=== PATIENT | male | born 1975 | race Caucasian/White ===

== ENCOUNTER 2016-10-20 14:28 | Emergency (ER) | payer OTHER ==
--- NOTE | ~2016-10-20 | CT2 ---
[facility] A Service [facility] RADIOLOGY TEXT RESULTS PATIENT: BRYANT HERRERA LOCATION: [facility] : [birth year] UNIT #: [id number] AGE: [address]: Bryant Gómez MD SEX: M ORDER DR: [id number] [facility] [address]. [place], [place] [address] [id number] E MR#: [id number] Acc #: [id number] NAME: BRYANT HERRERA. : 1975 SEX: M STUDY DATE/TIME: 10/20/2016 15:49 UNIT: [facility] ROOM: STUDY DESCRIPTION: CT Abd and Pelv W Cont Attending Physician: Micah Gómez M.D. Ordering Physician: Rashaun Javier M.D. Primary Care Physician: Mahesh Bazan M.D. MEDICAL IMAGING REPORT This report is preliminary unless electronic signature is present EXAM CT of the abdomen and pelvis with IV contrast media 10/20/2016 HISTORY Right-sided abdominal pain for 2 days. TECHNIQUE Axial imaging of the abdomen and pelvis was obtained with IV contrast media. This CT exam was performed with one or more of the following radiation dose reduction techniques: automatic exposure control, adjustment of mA and/or kV according to patient size, and iterative reconstruction. COMPARISON STUDIES The patient has not had any prior imaging of the abdomen and pelvis for comparison. FINDINGS Scans through the lung bases are normal. Liver, spleen, gallbladder, adrenal glands, and pancreas have a normal appearance. Both the right and left kidney are normal. No dilated or thickened loops of bowel are identified in the upper abdomen. The appendix in this patient is normal. Scans through the pelvis show extensive sigmoid diverticulosis but there is no compelling evidence of diverticulitis. There is some redundancy of the sigmoid. Bladder is unremarkable. Prostate and seminal vesicles appear normal. CONCLUSION Sigmoid diverticulosis, otherwise negative. Dictated by... Ata Fregoso M.D. [facility] A Service of [facility] RADIOLOGY TEXT RESULTS PATIENT: BRYANT HERRERA LOCATION: [facility] : 79 UNIT #: [id number] AGE: [address]: Bryant Gómez MD SEX: M ORDER DR: THIS IS AN ELECTRONICALLY VERIFIED REPORT Ata Fregoso M.D. at 10/24/2016 2:45 PM AGUILA/nitza TD: 10/20/2016 17:45 JOB #: [id number] MEDICAL IMAGING REPORT Page 1 of 1 COPY
[2016-10-20 14:28] LABS: URINE SOURCE CLEAN CATCH
[~2016-10-20 14:28] MED LIST: ALBUTEROL17 GM INH; AMBIEN10 MG PO; AUGMENTIN875 MG PO; HEARTBURN RELIE75 M1 PO; LORTAB 7.51 TAB DOB; VOLTAREN75 MG PO
[2016-10-20 14:37] LABS: BASOPHIL# 0.1 X10e3 (0-0.3); BASOPHIL% 0.9 % (0-2.5); EOSINOPHIL# 0.2 X10e3 (0-0.7); EOSINOPHIL% 2.4 % (0.0-7.0); HEMATOCRIT 46.1 % (38.0-50.0); HEMOGLOBIN 15.5 gm/dL (13.0-16.0); LYMPHOCYTE# 1.7 X10e3 (1.0-3.5); LYMPHOCYTE% 22.4 % (17.0-45.0); MEAN CELL VOLUME 88.4 FL (83-96); MEAN CORPUSCULAR HEMOGLOBIN 29.7 PG (28-34); MEAN CORPUSCULAR HGB CONC 33.6 g/dL (30-36); MEAN PLATELET VOLUME 8.7 FL (6.5-11.5); MONOCYTE# 0.7 X10e3 (0-1.0); MONOCYTE% 9.1 % (3.0-12.0); NEUTROPHIL# 4.9 X10e3 (1.5-7.1); NEUTROPHIL% 65.2 % (40-75); PLATELET COUNT 245 X10e3 (140-420); RED BLOOD COUNT 5.21 X10e (3.90-5.60); RED CELL DISTRIBUTION WIDTH 14.9 % (11.0-15.5); WHITE BLOOD COUNT 7.5 X10e3 (4.0-10.5)
[2016-10-20 14:40] LABS: URINE APPEARANCE CLEAR; URINE BILIRUBIN NEG (NEG); URINE BLOOD NEG (NEG); URINE COLOR YELLOW; URINE GLUCOSE NEG (NEG); URINE KETONE NEG (NEG); URINE LEUKOCYTE ESTERASE NEG (NEG); URINE NITRATE NEG (NEG); URINE PROTEIN NEG (NEG); URINE SPECIFIC GRAVITY 1.024 (1.003-1.035); URINE UROBILINOGEN 0.2 MG/DL (NEG)
[2016-10-20 14:41] LABS: DIFF IND NO
[2016-10-20 15:00] LABS: ALBUMIN SERUM 4.4 g/dL (3.5-5.0); BILIRUBIN, DIRECT 0.1 mg/dL (0.0-0.2); BILIRUBIN,INDIRECT 0.7 mg/dL (0.0-0.9); BILIRUBIN,TOTAL 0.8 mg/dL (0.2-2.0); BUN/CREATININE RATIO 31.66; CREATININE SERUM 0.6 mg/dL (0.6-1.4); GLOM FILT RATE Estimated 126.7 mL/min (>60); POTASSIUM 4.4 mmol/L (3.5-5.1); PROTEIN TOTAL SERUM 7.7 g/dL (6.0-8.3)
[2016-10-20 15:04] LABS: CULTURE INDICATED? NO
[2016-11-16] MEDS ORDERED: SUBOXONE 8 MG-1 EAC1 SL (12:20)
== END 2016-10-20 17:40 | disposition home or self-care (01) ==
LOC: CED 14:28
PROVIDERS: Emergency Medicine
DX: K57.32 Diverticulitis of large intestine without perforation or abscess without bleeding (principal); F17.210 Nicotine dependence, cigarettes, uncomplicated
CPT/HCPCS: 36415; 74177; 80048; 80076; 81003; 82150; 83690; 85025; 99284; Q9967

== ENCOUNTER 2016-11-16 13:01 | Emergency (ER) | payer OTHER ==
--- NOTE | ~2016-11-16 | EKG ---
PATIENT: BRYANT HERRERA UNIT #: [id number] Ventricular Rate: 57 BPM Atrial Rate: 57 BPM P-R Interval: 154 ms QRS Duration: 108 ms Q-T Interval: 422 ms QTC Calculation(Bezet): 410 ms P [place]: 40 degrees Calculated R [place]: -9 degrees Calculated T [place]: 38 degrees Diagnosis Line: Sinus bradycardia Diagnosis Line: Incomplete right bundle branch block Diagnosis Line: Otherwise normal ECG Diagnosis Line: No previous ECGs available Diagnosis Line: Confirmed by SIM SORIANO MD ([id number]) on 11/24/2016 Diagnosis Line: 11:51:58 AM INTERPRETING MD: CHRISTIE AGUIRRE
--- NOTE | ~2016-11-16 | CR63 ---
[facility] A Service of [facility] & [facility] RADIOLOGY TEXT RESULTS PATIENT: BRYANT HERRERA LOCATION: [facility] : 79 UNIT #: [id number] AGE: [address]: Rebeka Avitia APRN SEX: M ORDER DR: [id number] [place] [address] [id number] E MR#: [id number] Acc #: [id number] NAME: BRYANT HERRERA : 1975 SEX: M STUDY DATE/TIME: 11/16/2016 13:26 UNIT: [facility] ROOM: STUDY DESCRIPTION: CR Chest 2 View Attending Physician: Rebeka Avitia A.P.R.N. Ordering Physician: Rebeka Avitia A.P.R.N. Primary Care Physician: Mahesh Bazan M.D. MEDICAL IMAGING REPORT This report is preliminary unless electronic signature is present. EXAM Chest x-ray, 11/16. INDICATION Sore throat, cough, diaphoresis and dizziness for the last two days. History of smoking. FINDINGS 2 views of the chest are compared with 11/25/2013. Lungs appear emphysematous but clear. Cardiac and mediastinal contours are normal. There is no pneumothorax. IMPRESSION Emphysema. No active disease. Dictated by... Rashaun Mckeon Jr., M.D. THIS IS AN ELECTRONICALLY VERIFIED REPORT Rashaun Mckeon Jr., M.D. at 11/16/2016 4:45 PM JOHN/kostas TD: 11/16/2016 14:19 JOB #: [id number] MEDICAL IMAGING REPORT Page 1 of 1
[2016-11-16 12:49] LABS: INFLUENZA A NEG (NEG); INFLUENZA B NEG (NEG)
[~2016-11-16 13:01] MED LIST changes: +SUBOXONE 8 MG-1 EAC1 SL
[2016-11-16 13:25] LABS: POC - CKMB 2.3 ng/mL (0.0-7.9)
[2016-11-16 13:25] LABS: BASOPHIL% 0.6 % (0-2.5); EOSINOPHIL# 0.1 X10e3 (0-0.7); EOSINOPHIL% 2.3 % (0.0-7.0); HEMATOCRIT 43.9 % (38.0-50.0); HEMOGLOBIN 14.9 gm/dL (13.0-16.0); LYMPHOCYTE# 1.3 X10e3 (1.0-3.5); LYMPHOCYTE% 20.8 % (17.0-45.0); MEAN CELL VOLUME 88.7 FL (83-96); MEAN CORPUSCULAR HEMOGLOBIN 30.1 PG (28-34); MEAN CORPUSCULAR HGB CONC 33.9 g/dL (30-36); MEAN PLATELET VOLUME 8.8 FL (6.5-11.5); MONOCYTE# 0.7 X10e3 (0-1.0); MONOCYTE% 11.3 % (3.0-12.0); NEUTROPHIL# 4.2 X10e3 (1.5-7.1); PLATELET COUNT 178 X10e3 (140-420); RED BLOOD COUNT 4.95 X10e (3.90-5.60); RED CELL DISTRIBUTION WIDTH 14.3 % (11.0-15.5); WHITE BLOOD COUNT 6.4 X10e3 (4.0-10.5)
[2016-11-16 13:26] LABS: DIFF IND NO
[2016-11-16 13:26] LABS: POC - TROPONIN <0.05 ng/mL (<=0.05)
[2016-11-16 13:43] LABS: ALBUMIN SERUM 4.1 g/dL (3.5-5.0); BILIRUBIN,TOTAL 0.5 mg/dL (0.2-2.0); BUN/CREATININE RATIO 17.77; CALCIUM SERUM 8.9 mg/dL (8.4-10.2); CREATININE SERUM 0.9 mg/dL (0.6-1.4); GLOM FILT RATE Estimated 107.2 mL/min (>60); POTASSIUM 4.4 mmol/L (3.5-5.1); PROTEIN TOTAL SERUM 7.4 g/dL (6.0-8.3)
== END 2016-11-16 15:10 | disposition home or self-care (01) ==
LOC: SED 13:01
PROVIDERS: Nurse Practitioner
DX: J20.9 Acute bronchitis, unspecified (principal); F17.210 Nicotine dependence, cigarettes, uncomplicated; Z79.899 Other long term (current) drug therapy; Z90.89 Acquired absence of other organs
CPT/HCPCS: 36415; 71020; 80053; 82553; 82947; 83690; 84484; 85025; 87651; 87804; 93005; 94640; 99283

== ENCOUNTER → 2016-11-18 | Outpatient (CLI) | payer OTHER ==
--- NOTE | ~2016-11-18 | US6 ---
[facility] A Service of [facility] RADIOLOGY TEXT RESULTS PATIENT: BRYANT HERRERA LOCATION: [facility] : 79 UNIT #: [id number] AGE: [address]: Graham Cyr MD SEX: M ORDER DR: [id number] [address] [address] [id number] O MR#: [id number] Acc #: [id number] NAME: BRYANT HERRERA : 1975 SEX: M STUDY DATE/TIME: 11/18/2016 9:40 UNIT: [facility] ROOM: STUDY DESCRIPTION: US Abdominal Limited Attending Physician: Graham Cyr M.D. Referring Physician: Graham Cyr M.D. Ordering Physician: Graham Cyr M.D. Primary Care Physician: Mahesh Bazan M.D. MEDICAL IMAGING REPORT This report is preliminary unless electronic signature is present. EXAM Right upper quadrant ultrasound HISTORY Right upper quadrant pain for 3 weeks. TECHNIQUE Anderson-scale and color Doppler sonographic images were obtained through the right upper quadrant. FINDINGS Pancreas is not well seen due to overlying bowel gas. Patient's liver is enlarged measuring up to 7.3 cm in craniocaudal dimensions. No focal hepatic lesions are seen. On some of the images, salesperson sheet music questions some stones within the gallbladder. However, with review of the images, I suspect the appearance is actually due to adjacent bowel gas. Certainly, there is no evidence of gallbladder wall thickening or pericholecystic fluid. Right kidney is normal in appearance. There are no solid or cystic renal masses seen and there is no hydronephrosis. Main portal vein is patent with hepatopetal flow. IMPRESSION 1. Hepatomegaly. Liver measures up to 7.3 cm in craniocaudal dimensions. No focal hepatic lesions are seen. 2. Medical Records Specialist questions the possibility of some stones within the gallbladder. I think this is actually artifactual related to gas and adjacent bowel. Certainly, if there is any concern for cholecystitis, HIDA scan would be helpful. No gallbladder wall thickening or pericholecystic fluid on today's exam to suggest acute cholecystitis. STS. [facility] A Service of [facility] RADIOLOGY TEXT RESULTS PATIENT: BRYANT HERRERA LOCATION: [facility] : 79 UNIT #: [id number] AGE: [address]: Graham Cyr MD SEX: M ORDER DR: Dictated by... Maya Perez M.D. THIS IS AN ELECTRONICALLY VERIFIED REPORT Maya Perez M.D. at 11/22/2016 8:02 AM AFF/pcl TD: 11/18/2016 17:51 JOB #: [id number] MEDICAL IMAGING REPORT Page 1 of 1
== END | disposition home or self-care (01) ==
LOC: SGUS 08:06
DX: K57.30 Diverticulosis of large intestine without perforation or abscess without bleeding (principal); R10.11 Right upper quadrant pain; K59.00 Constipation, unspecified; K76.0 Fatty (change of) liver, not elsewhere classified
CPT/HCPCS: 76705